=== PATIENT | male | born 1990 | race Caucasian/White ===

== ENCOUNTER 2021-02-08 22:31 | Emergency (ER) | payer OTHER ==
--- NOTE | 2021-02-08 22:39 | ED Physician Documentation ---
PD HPI UPPER EXT INJURY - Stated complaint Stated Complaint: LT FINGER INJ - History obtained from History obtained from: Patient - History of Present Illness Location: Left, Finger (middle) Type of injury: Twist, Blunt / blow (playing tag football and his finger caught up in clothing of another, with jam and twist. Pain and swelling middle to DIP area of the finger.) Timing - onset: How many hours ago (1-2), Today Timing - details: Abrupt onset, Still present Worsened by: Moving, Palpating Associated symptoms: Swelling. No: Weakness, Numbness Similar symptoms before: Has not had sx before Review of Systems Skin: denies: Abrasion (s), Laceration (s) Neurologic: reports: Focal weakness (hurts and feels weaker for flex/extension). denies: Numbness PD PAST MEDICAL HISTORY - Past Medical History Past Medical History: No - Present Medications Home Medications: Ambulatory Orders Medication Instructions Recorded Confirmed No Known Home Medications 02/08/21 02/08/21 - Allergies Allergies/Adverse Reactions: Allergies Allergy/AdvReac Type Severity Reaction Status Date / Time No Known Drug Allergies Allergy Verified 02/08/21 22:40 PD ED PE NORMAL - Vitals Vital signs reviewed: Yes - General General: Alert and oriented X 3, No acute distress, Well developed/nourished - Derm Derm: Normal color, Warm and dry - Extremities Extremities: Other (left middel finger with swelling and tenderness at middle phalanx to the DIP area. Able to flex and extend at IPs though it hurts and limited by swelling. Normal color and cap ref in tip. Swelling mid finger. ) - Neuro Neuro: Alert and oriented X 3, No motor deficit, No sensory deficit Results - Vitals Vitals: Vital Signs - 24 hr 02/08/21 02/08/21 22:38 23:23 Temperature 36.4 C L Heart Rate 89 Respiratory 16 15 Rate Blood Pressure 118/68 O2 Saturation 98 Oxygen O2 Source Room air - Rads (name of study) left hand Radiology: Prelim report reviewed (middle finger middle phalanx oblique fracture, nondisplaced, nonarticular. ), See rad report PD MEDICAL DECISION MAKING - ED course Complexity details: reviewed results, considered differential, d/w patient Departure - Departure Disposition: 01 Home, Self Care Clinical Impression: Finger fracture Qualifiers: Encounter type: initial encounter Finger: middle finger Fracture type: closed Phalanx: middle Fracture alignment: nondisplaced Laterality: left Qualified Code(s): S62.653A - Nondisplaced fracture of middle phalanx of left middle finger, initial encounter for closed fracture Condition: Stable Record reviewed to determine appropriate education?: Yes Instructions: ED Fx Finger Closed Follow-Up: KRISTI Beaulieu [Provider Group] Comments: Tylenol or ibuprofen as needed for pain. Ice and elevate the finger often tonight and tomorrow for swelling. Keep the finger splint on pretty much all the time for the next 3 to 4 weeks for healing. It is okay to have it off briefly for cleaning or washing the skin but then tapered on the rest. Follow-up with your primary care for reevaluation. Commonly you will get olivia- rayed in about a week to ensure its holding position and does not need any surgical intervention such as pins or wires. As it is it would be okay if it heals in place and does not need intervention. Discharge Date/Time: 02/08/21 23:24
[2021-02-08 22:40] VITALS: BP 118/68
[2021-02-08] MEDS ORDERED: IBUPROFEN 600 MG TABLET PO STA (23:00)
--- NOTE | 2021-02-08 23:26 | XRAY Report ---
PROCEDURE: Hand 3 View LT INDICATIONS: SWELLING/PAIN L 3RD DIGIT TECHNIQUE: 3 views of the left hand. COMPARISON: None FINDINGS: Oblique fracture of the third middle phalanx, comminuted and mildly displaced. IMPRESSION: Comminuted and mildly displaced fracture of the third middle phalanx. Reviewed by: Bhupinder Paez MD on 02/08/2021 11:25 PM PDT Approved by: Bhupinder Paez MD on 02/08/2021 11:25 PM PDT Station ID: [id number]
== END 2021-02-08 23:24 | disposition home or self-care (01) ==
LOC: ED 22:31
DX: S62.653A Nondisplaced fracture of middle phalanx of left middle finger, initial encounter for closed fracture (principal); X50.1XXA Overexertion from prolonged static or awkward postures, initial encounter; Y93.62 Activity, american flag or touch football
CPT/HCPCS: 73130; 99282; 99283; A9270